=== PATIENT | male | born 1980 | race Caucasian/White ===

== ENCOUNTER 2021-06-27 21:33 | Emergency (ER) | payer SELFPAY ==
[~2021-06-27] VITALS: Ht 175.3 cm; Wt 100.0 kg
[2021-06-27 23:30] LABS: CHLORIDE 97 mEq/L (98-107)
[2021-06-27 23:34] LABS: BASOPHILS % 0.4 % (0.0-2.0); EOSINOPHILS % 1.4 % (0.0-5.0); HEMATOCRIT. 37.9 % (42.0-52.0); HEMOGLOBIN. 13.2 g/dL (14.0-18.0); LYMPHOCYTES % 35.4 % (20.0-50.0); MEAN CORPUSCULAR HEMOGLOBIN 32.4 pg (28.0-32.0); MEAN CORPUSCULAR VOLUME 92.8 fL (80.0-94.0); MEAN PLATELET VOLUME 8.5 fl (7.4-10.4); MONOCYTES % 7.4 % (2.0-8.0); NEUTROPHILS % 55.4 % (40.0-76.0); PLATELET 250 x1000/uL (130-400); RED BLOOD CELL COUNT 4.09 mill/uL (4.7-6.1); RED CELL DISTRIBUTION WIDTH 12.5 % (11.6-14.6)
[2021-06-28] MEDS ORDERED: SODIUM CHLORIDE 0.9% 1,000 ML IV ONE (00:15)
[2021-06-28] MEDS ORDERED: MORPHINE SULFATE 2 MG/ML CPJ (NOT FOR IM USE) IV ONE (03:45)
[2021-06-28 03:48] VITALS: BP 118/87
[2021-06-28] MEDS ORDERED: NAPR500T7 MT (04:41)
[2021-06-28] MEDS ORDERED: METH-653 MT (04:41)
[2021-06-28] MEDS ORDERED: IOHEXOL-300 100 ML BOTTLE ONE (05:16)
== END 2021-06-28 05:08 | disposition home or self-care (01) ==
LOC: ER 21:33
DX: S05.11XA Contusion of eyeball and orbital tissues, right eye, initial encounter (principal); S80.01XA Contusion of right knee, initial encounter; S63.592A Other specified sprain of left wrist, initial encounter; V49.59XA Passenger injured in collision with other motor vehicles in traffic accident, initial encounter; Y93.89 Activity, other specified; Y92.89 Other specified places as the place of occurrence of the external cause; Y99.8 Other external cause status; E11.9 Type 2 diabetes mellitus without complications
CPT/HCPCS: 36415; 70450; 70486; 73110; 73562; 74177; 80048; 85025; 96361; 96374; 99285; J2270; J7030; Q9967